=== PATIENT | female | born 1980 | race Native Hawaiian/Other Pacific Islander ===

== ENCOUNTER 2019-06-10 19:50 | Emergency (ER) | payer OTHER ==
[~2019-06-10] VITALS: Ht 152.4 cm; Wt 77.1 kg
[2019-06-10 21:09] VITALS: BP 134/89; TEMP 98.2
== END 2019-06-10 21:09 | disposition home or self-care (01) ==
LOC: ED 19:50
DX: H66.93 Otitis media, unspecified, bilateral (principal); F17.210 Nicotine dependence, cigarettes, uncomplicated
CPT/HCPCS: 96372; 99283; J0696; J1885